=== PATIENT | male | born 1990 | race American Indian/Alaskan Native ===

== ENCOUNTER 2019-08-25 19:00 | Emergency (ER) | payer SELFPAY ==
[2019-08-25 19:26] VITALS: BP 132/67
--- NOTE | 2019-08-25 20:38 | Emergency Department Report ---
Chief Complaint: Urogenital-Male Stated Complaint: DISCHARGE Time Seen by Provider: 08/25/19 20:35 - HPI History of Present Illness: 29-year-old -[place] male presents to the emergency room stating he does have penile discharge. Patient reports some burning at the tip. Denies any abdominal pain fever chills nausea vomiting. - Exam Vital Signs: Vital Signs 08/25/19 19:13 Temperature 97.8 F Pulse Rate 71 Respiratory 20 Rate Blood Pressure 132/67 O2 Sat by Pulse 98 Oximetry Physical Exam: Alert and oriented x3 no acute distress Amatory without difficulties MSE screening note: Focused history and physical exam performed. Due to findings the following was ordered: 29-year-old -[place] male presents to the emergency room stating he does have penile discharge. Patient reports some burning at the tip. Denies any abdominal pain fever chills nausea vomiting. Recommend follow-up at the [facility] department urgent care or primary care office. ED Disposition for MSE Disposition: MED SCREENING EXAM-LEFT Is pt being admited?: No Does the pt Need Aspirin: No Condition: Stable Additional Instructions: Recommend follow-up at the health department urgent care or primary care office. Referrals: PRIMARY CARE [Primary Care Provider] - 3-5 Days [facility] [Outside] - 3-5 Days [facility] [Outside] - 3-5 Days [facility] [Outside] - 3-5 Days [facility] [Outside] - 3-5 Days
== END 2019-08-25 20:40 | disposition left against medical advice (07) ==
LOC: ED 19:00
DX: R36.9 Urethral discharge, unspecified (principal)
CPT/HCPCS: 99282